=== PATIENT | female | born 1980 ===

== ENCOUNTER 2017-11-20 15:49 | Emergency (ER) | payer OTHER ==
[2017-11-20 16:00] VITALS: BP 125/78; TEMP 98.2
[2017-11-20 17:41] VITALS: RESP 20
[2017-11-20 17:44] VITALS: O2SAT 98
--- NOTE | 2017-11-20 19:37 | ED PDOC ---
HPI: General Adult Time Seen by Provider: 11/20/17 17:43 Chief Complaint (Nursing): Shortness Of Breath History Per: Patient Additional Complaint(s): Pt. states for the past 2 weeks she's had a worsening cough which she's had since 2013. States she feels as if there is phlegm stuck in her chest. Reports only having chest pain and SOB when she has a coughing spell. States in 2013 she was dx with asthma but has not taken her albuterol pump since 2013. Denies fever, hemoptysis, GREEN, leg pain or swelling, hx of DVT or PE, previous intubations or admissions for asthma, hormonal therapy. Past Medical History Reviewed: Historical Data, Nursing Documentation, Vital Signs Vital Signs: Last Vital Signs Temp 98.2 F 11/20/17 15:58 Pulse 85 11/20/17 19:38 Resp 20 11/20/17 17:44 BP 125/78 11/20/17 15:58 Pulse Ox 98 11/20/17 19:38 - Medical History PMH: Asthma - Family History Family History: States: No Known Family Hx - Home Medications Home Medications: Ambulatory Orders Medication Instructions Recorded Albuterol HFA [Ventolin HFA 90 2 puff IH [id number] PRN #1 inhaler 11/20/17 mcg/actuation (8 g)] Azithromycin [Zithromax] 250 mg PO DAILY #6 tab 11/20/17 Promethazine DM [Phenergan DM 5 - 10 ml PO Q8 PRN #120 ml 11/20/17 Syrup] - Allergies Allergies/Adverse Reactions: Allergies Allergy/AdvReac Type Severity Reaction Status Date / Time No Known Allergies Allergy Verified 11/20/17 15:57 Review of Systems ROS Statement: Except As Marked, All Systems Reviewed And Found Negative Respiratory: Positive for: Cough Physical Exam - Physical Exam Appears: Positive for: Well, Non-toxic, No Acute Distress Skin: Positive for: Normal Color, Warm. Negative for: Rash Eye Exam: Positive for: Normal appearance ENT: Positive for: Normal ENT Inspection Cardiovascular/Chest: Positive for: Regular Rate, Rhythm Respiratory: Positive for: Normal Breath Sounds. Negative for: Accessory Muscle Use, Crackles, Rales, Rhonchi, Wheezing, Respiratory Distress Back: Positive for: Normal Inspection Neurologic/Psych: Positive for: Alert, Oriented - ECG ECG: Positive for: Interpreted By Me ECG Rhythm: Positive for: Sinus Rhythm. Negative for: ST/T Changes Rate: 85 O2 Sat by Pulse Oximetry: 98 - Radiology X-Ray: Interpreted by Me (CXR) X-Ray Interpretation: No Acute Disease Disposition - Clinical Impression Clinical Impression: Acute bronchitis - Patient ED Disposition Is Patient to be Admitted: No - Disposition Referrals: [facility] [Outside] Disposition: Routine/Home Disposition Time: 19:36 Condition: STABLE Additional Instructions: Follow up with [facility] for further evaluation. Return to ED immediately if symptoms worsen or other concerns arise. Prescriptions: Albuterol HFA [Ventolin HFA 90 mcg/actuation (8 g)] 2 puff IH [id number] PRN #1 inhaler PRN Reason: Wheezing Azithromycin [Zithromax] 250 mg PO DAILY #6 tab Promethazine DM [Phenergan DM Syrup] 5 - 10 ml PO Q8 PRN #120 ml PRN Reason: Cough Instructions: Acute Bronchitis, Adult (DC) Forms: [employer] ([employer]) Print Language: SLOVAK
[2017-11-20 19:38] VITALS: PULSE 85
--- NOTE | 2017-11-21 10:41 | RAD ---
HISTORY: cough COMPARISON: No prior. TECHNIQUE: Chest PA and lateral FINDINGS: LUNGS: No active pulmonary disease. PLEURA: No significant pleural effusion identified. No pneumothorax apparent. CARDIOVASCULAR: Normal. OSSEOUS STRUCTURES: No significant abnormalities. VISUALIZED UPPER ABDOMEN: Normal. OTHER FINDINGS: None. IMPRESSION: No active disease.
--- NOTE | 2017-11-21 19:45 | CARD ---
APPROVED REPORT EKG Measurement Heart [id number] <Conclusion> Normal sinus rhythm Normal ECG
== END 2017-11-20 20:08 | disposition home or self-care (01) ==
LOC: H.ER 15:49
DX: J20.9 Acute bronchitis, unspecified (principal)